=== PATIENT | female | born 1995 | race Caucasian/White ===

== ENCOUNTER 2022-04-10 10:46 | Inpatient (IN) | payer BC ==
[2022-04-10] MEDS ORDERED: Calcium Carbonate 500 MG Tab.Chew PO PRN (13:36)
[2022-04-10] MEDS ORDERED: Sodium Chloride 0.9% 10 ML Syringe FLUSH PRN (13:36)
[2022-04-10] MEDS ORDERED: Nalbuphine HCl 10 MG/ 1ML Amp IVPUSH PRN (13:36)
[2022-04-10] MEDS ORDERED: Ondansetron 4 MG/2 ML SDV IVPUSH PRN (13:36)
[2022-04-10] MEDS ORDERED: Acetaminophen 325 MG Tab PO PRN (13:36)
[2022-04-10] MEDS ORDERED: Oxytocin/Lactated Ringers 10 UNIT/1,000 ML BAG IV SCH ×2 (13:45→19:00)
[2022-04-10] MEDS: Lactated Ringers 1,000 ML IV SCH ×3 (18:47→23:13)
[2022-04-10] MEDS ORDERED: diphenhydrAMINE 50 MG/ML SDV IVPUSH PRN (19:03)
[2022-04-10] MEDS ORDERED: Bupivacaine/fentaNYL/NS 100 ML Bag EPIDUR PRN (19:03)
[2022-04-10] MEDS ORDERED: ePHEDrine 50 MG/ML SDV IVPUSH PRN (19:03)
[2022-04-10] MEDS ORDERED: fentaNYL 100 MCG/2 ML SDV ONE (19:06)
[2022-04-10] MEDS: fentaNYL 100 MCG/2 ML SDV EPIDUR PRN (19:10)
[2022-04-10] MEDS ORDERED: Sodium Chloride 0.9% 10 ML Syringe FLUSH SCH (21:00)
[2022-04-11] MEDS: fentaNYL 100 MCG/2 ML SDV EPIDUR PRN ×2 (00:26→03:46)
[2022-04-11] MEDS: Lactated Ringers 1,000 ML IV SCH (02:43)
[2022-04-11] MEDS ORDERED: Bupivacaine 0.25% 10 ML SDV ONE (04:00)
[2022-04-11] MEDS ORDERED: Ampicillin 2 GM in Sodium Chloride 0.9% 100 ML IV ONE (04:02)
[2022-04-11] MEDS ORDERED: Acetaminophen 325 MG Tab PO ONE (04:02)
[2022-04-11] MEDS ORDERED: Clindamycin Phosphate in D5W 900 MG in Premix Bag 1 BAG IV ONE ×2 (04:05)
[2022-04-11] MEDS ORDERED: Gentamicin 360 MG in Sodium Chloride 0.9% 100 ML IV ONE ×2 (04:15→04:30)
[2022-04-11] MEDS ORDERED: Metoclopramide 10 MG/2 ML SDV ONE (05:23)
[2022-04-11] MEDS ORDERED: Citric Acid/Sodium Citrate Solution 30 ML Cup ONE (05:24)
[2022-04-11] MEDS ORDERED: Lidocaine 2% with EPINEPHrine 1:200,000 20 ML SDV ONE (05:30)
[2022-04-11] MEDS ORDERED: Oxytocin 10 Units/1 ML SDV ONE ×2 (05:30→06:55)
[2022-04-11] MEDS ORDERED: Ondansetron 4 MG/2 ML SDV ONE (05:30)
[2022-04-11] MEDS ORDERED: Morphine PF 10 MG/10 ML SDV ONE (05:33)
[2022-04-11] MEDS ORDERED: fentaNYL 100 MCG/2 ML SDV ONE (05:34)
[2022-04-11] MEDS ORDERED: Citric Acid/Sodium Citrate Solution 30 ML Cup PO ONE (05:35)
[2022-04-11] MEDS ORDERED: Metoclopramide 10 MG/2 ML SDV IVPUSH ONE (05:35)
[2022-04-11] MEDS ORDERED: ceFAZolin 2 GM in Sodium Chloride 0.9% 50 ML IV ONE (05:35)
[2022-04-11] MEDS ORDERED: ceFAZolin 1 GM Vial ONE (06:05)
[2022-04-11] MEDS ORDERED: Lactated Ringers 1,000 ML ONE ×2 (06:10)
[2022-04-11] MEDS ORDERED: Methylergonovine 0.2 MG/1 ML Amp ONE (06:38)
[2022-04-11] MEDS ORDERED: ePHEDrine 50 MG/ML SDV ONE (06:46)
[2022-04-11] MEDS ORDERED: Sodium Chloride 0.9% 100 ML ONE (06:58)
[2022-04-11] MEDS ORDERED: Meperidine 50 MG/ML Vial IVPUSH PRN (07:22)
[2022-04-11] MEDS ORDERED: diphenhydrAMINE 50 MG/ML SDV IVPUSH PRN ×2 (07:22→08:35)
[2022-04-11] MEDS ORDERED: fentaNYL 100 MCG/2 ML SDV IVPUSH PRN (07:22)
[2022-04-11] MEDS ORDERED: Ondansetron 4 MG/2 ML SDV IVPUSH PRN (07:22)
[2022-04-11] MEDS ORDERED: Ondansetron 4 MG/2 ML SDV IV PRN (08:35)
[2022-04-11] MEDS ORDERED: ePHEDrine 50 MG/ML SDV IVPUSH PRN (08:35)
[2022-04-11] MEDS ORDERED: Dextrose 5%-Lactated Ringers 1,000 ML IV SCH (08:35)
[2022-04-11] MEDS: Clindamycin Phosphate in D5W 900 MG in Premix Bag 1 BAG IV SCH ×4 (12:33→20:37)
[2022-04-11] MEDS: Acetaminophen/oxyCODONE 325-5 MG Tab PO PRN ×2 (13:03→16:46)
[2022-04-11] MEDS ORDERED: Sodium Chloride 0.9% 1,000 ML IV SCH (14:45)
[2022-04-11] MEDS ORDERED: Iopamidol 755 Mg/ML 100 ML Bottle IVPUSH ONE (19:16)
[2022-04-11] MEDS ORDERED: Sodium Chloride 0.9% 100 ML IV ONE (19:16)
[2022-04-11] MEDS: Sodium Chloride 0.9% 10 ML Syringe FLUSH PRN (19:40)
[2022-04-11] MEDS ORDERED: Vancomycin 1.5 GM in Sodium Chloride 0.9% 500 ML IV SCH (20:00)
[2022-04-11] MEDS ORDERED: Water For Injection, Sterile 10 ML SDV ONE (21:15)
[2022-04-12] MEDS: Acetaminophen/oxyCODONE 325-5 MG Tab PO PRN ×4 (00:29→23:53)
[2022-04-12] MEDS ORDERED: Sodium Chloride 0.9% 250 ML IV SCH (00:45)
[2022-04-12] MEDS: Clindamycin Phosphate in D5W 900 MG in Premix Bag 1 BAG IV SCH ×2 (04:44)
[2022-04-12] MEDS: Sertraline 50 MG Tab PO SCH (08:15)
[2022-04-12] MEDS: Metoprolol Succinate 25 MG Tab.ER PO SCH (08:15)
[2022-04-12] MEDS: Docusate Sodium 100 MG Cap PO PRN (21:22)
[2022-04-12] MEDS: Sodium Chloride 0.9% 10 ML Syringe FLUSH PRN (21:23)
[2022-04-13] MEDS: Acetaminophen/oxyCODONE 325-5 MG Tab PO PRN ×4 (04:07→18:06)
[2022-04-13] MEDS ORDERED: Potassium Chloride 20 MEQ Tab.ER PO ONE (07:30)
[2022-04-13] MEDS: Metoprolol Succinate 25 MG Tab.ER PO SCH (08:48)
[2022-04-13] MEDS: Sertraline 50 MG Tab PO SCH (08:49)
[2022-04-13] MEDS: Docusate Sodium 100 MG Cap PO PRN (08:49)
[2022-04-14] MEDS: Acetaminophen/oxyCODONE 325-5 MG Tab PO PRN ×3 (00:27→13:21)
[2022-04-14] MEDS: Metoprolol Succinate 25 MG Tab.ER PO SCH (08:50)
[2022-04-14] MEDS: Docusate Sodium 100 MG Cap PO PRN (08:51)
[2022-04-14] MEDS: Sertraline 50 MG Tab PO SCH (08:51)
== END 2022-04-14 13:28 | disposition home or self-care (01) | DRG 540 ==
LOC: JD.OBCHECK 10:46 → JD.OB 11:07 → JD.OBCHECK 13:36 → JD.OB 13:51 → OBSVTOIN 04-11 06:25 → JD.OB 04-11 06:26
PROVIDERS: ADMIT Obstetrics & Gynecology; ATTEND Obstetrics & Gynecology
PROC: 10D00Z1 Extraction of Products of Conception, Low, Open Approach (ICD-10-PCS; principal; 2022-04-11)
PROC: 10H07YZ Insertion of Other Device into Products of Conception, Via Natural or Artificial Opening (ICD-10-PCS; 2022-04-11)
PROC: 3E0R3BZ Introduction of Anesthetic Agent into Spinal Canal, Percutaneous Approach (ICD-10-PCS; 2022-04-11)
PROC: 00HU33Z Insertion of Infusion Device into Spinal Canal, Percutaneous Approach (ICD-10-PCS; 2022-04-11)
PROC: 30233N1 Transfusion of Nonautologous Red Blood Cells into Peripheral Vein, Percutaneous Approach (ICD-10-PCS; 2022-04-12)
DX: O41.1230 Chorioamnionitis, third trimester, not applicable or unspecified (principal); O99.214 Obesity complicating childbirth; O99.344 Other mental disorders complicating childbirth; Z37.0 Single live birth; Z3A.40 40 weeks gestation of pregnancy; O61.8 Other failed induction of labor; O72.1 Other immediate postpartum hemorrhage; D62 Acute posthemorrhagic anemia; F32.A Depression, unspecified; F41.9 Anxiety disorder, unspecified; O75.4 Other complications of obstetric surgery and procedures; R00.0 Tachycardia, unspecified; Z88.0 Allergy status to penicillin; Z88.6 Allergy status to analgesic agent; Z87.891 Personal history of nicotine dependence; Z86.16 Personal history of COVID-19
CPT/HCPCS: 01967; 01968; 36415; 36430; 51702; 59025; 71045; 71045-26; 71275; 71275-26; 74177; 74177-26; 80048; 84443; 85027; 86592; 86850; 86900; 86901; 86922; 93005; 94762; A9270-GY; J0690; J1200; J1580; J2210; J2274; J2370; J2405; J2590; J2765; J3010; J3370; J3490; J7040; J7050; J7120; J7121; P9016; Q9967